=== PATIENT | female | born 1985 ===

== ENCOUNTER 2018-10-21 21:04 | Emergency (ER) | payer SELFPAY ==
[2018-10-22 01:04] LABS: HCG Qualitative,Urine Negative (Negative)
[2018-10-22 01:10] LABS: Bacteria,Urine 1+ /HPF (Negative); Bilirubin,Urine NEG (Negative); Blood,Urine NEG (Negative); Color,Urine Yellow (Yellow); Mucus,Urine FEW /HPF; Protein,Urine <15 mg/dL mg/dL (Negative); Urobilinogen,Urine < 2.0 mg/dL (<2.0)
[2018-10-22 02:24] VITALS: BP 120/57
[2018-10-22] MEDS ORDERED: DECADRON IM ONE (04:44)
[2018-10-22] MEDS ORDERED: REGLAN PO ONE (04:44)
[2018-10-22] MEDS ORDERED: BENADRYL PO ONE (04:44)
[2018-10-22] MEDS ORDERED: TYLENOL PO ONE (04:44)
--- NOTE | 2018-10-22 05:57 | XRay Report ---
FINAL REPORT EXAM: XR CHEST ROUTINE 2V HISTORY: sob TECHNIQUE: PA and lateral chest radiographs PRIORS: None. FINDINGS: No mediastinal shift. Cardiac silhouette is not enlarged. No pneumothorax, effusion, or focal pulmon ariel opacity. No acute skeletal finding. IMPRESSION: No focal pulmonary opacity.
--- NOTE | 2018-10-22 06:18 | Emergency Department Report ---
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 , request sister for translation, patient states treated for pharyngitis and sinusitis in [place] one week ago however pt states allergic reaction to amoxicillin, as symptoms persist and she gets worsening headache and dizziness with amoxicillin use , symptoms now include headache ,frontal sinus pressure and sore throat dysphagia with clear mucus and postnasal drip patient states cough causes shortness of breath however there is no fever in triage patient denies wheezing or nausea vomiting no back pain symptoms are exacerbated by position and activity temporarily relieve by rest last menstrual period was 09/17/2018 Onset/Timin -: Gradual, week(s) Location: head, face Radiation: non-radiation Severity scale (0 -10): 3 Quality: aching, sharp, other (pressure ) Improves with: none Worsens with: other (activity ) Associated Symptoms: cough, headaches, malaise Treatments Prior to Arrival: none - Related Data Previous Rx's Medication Instructions Recorded Last Taken Type Cephalexin [Keflex] 500 mg PO TID 10 Days #30 capsule 10/22/18 Unknown Rx Dexamethasone [Decadron] 4 mg PO BID 3 Days #6 tablet 10/22/18 Unknown Rx Metoclopramide [Reglan] 10 mg PO ACHS PRN #28 tablet 10/22/18 Unknown Rx diphenhydrAMINE [Benadryl CAP] 25 mg PO Q6HR PRN 7 Days #28 10/22/18 Unknown Rx capsule Allergies Allergy/AdvReac Type Severity Reaction Status Date / Time Penicillins Allergy Unknown Verified 10/21/18 22:16 ED Review of Systems ROS: Stated complaint: SAMREEN Other details as noted in HPI Constitutional: chills, fever ENT: throat pain, congestion Respiratory: cough, shortness of breath. denies: wheezing Cardiovascular: denies: chest pain, palpitations Endocrine: no symptoms reported Gastrointestinal: denies: abdominal pain, nausea, diarrhea Genitourinary: frequency. denies: urgency, dysuria, discharge Musculoskeletal: denies: back pain, joint swelling, arthralgia Skin: denies: rash, lesions Neurological: headache. denies: weakness, paresthesias Psychiatric: anxiety. denies: depression Hematological/Lymphatic: denies: easy bleeding, easy bruising ED Past Medical Hx - Past Medical History Hx Hypertension: Yes - Surgical History Additional Surgical History: 2 C-SECTIONS - Social History Smoking Status: Never Smoker Substance Use Type: Alcohol - Medications Home Medications: Home Medications Medication Instructions Recorded Confirmed Last Taken Type Cephalexin [Keflex] 500 mg PO TID 10 Days #30 capsule 10/22/18 Unknown Rx Dexamethasone [Decadron] 4 mg PO BID 3 Days #6 tablet 10/22/18 Unknown Rx Metoclopramide [Reglan] 10 mg PO ACHS PRN #28 tablet 10/22/18 Unknown Rx diphenhydrAMINE [Benadryl CAP] 25 mg PO Q6HR PRN 7 Days #28 10/22/18 Unknown Rx capsule ED Physical Exam - General Limitations: No Limitations General appearance: alert, in no apparent distress - Head Head exam: Present: atraumatic, normocephalic, normal inspection - Eye Eye exam: Present: normal appearance, PERRL, EOMI Pupils: Present: normal accommodation - ENT ENT exam: Present: mucous membranes moist, normal external ear exam - Expanded ENT Exam Expanded Ear exam: Present: normal external inspection Mouth exam: Absent: trismus Throat exam: Positive: tonsillar erythema, tonsillomegaly, tonsillar exudate, other (uvula midline mild exudate no lesions no stridor no wheezing ). Negative: R peritonsillar mass, L peritonsillar mass - Neck Neck exam: Present: normal inspection, full ROM. Absent: tenderness, lymphadenopathy, thyromegaly - Respiratory Respiratory exam: Present: normal lung sounds bilaterally. Absent: respiratory distress, wheezes, rales, rhonchi, stridor, chest wall tenderness, accessory muscle use, decreased breath sounds, prolonged expiratory - Cardiovascular Cardiovascular Exam: Present: regular rate, normal rhythm, normal heart sounds. Absent: systolic murmur, diastolic murmur, rubs, gallop - GI/Abdominal GI/Abdominal exam: Present: soft, normal bowel sounds. Absent: bruit, hernia - Rectal Rectal exam: Present: deferred - Extremities Exam Extremities exam: Present: normal inspection, full ROM, normal capillary refill - Back Exam Back exam: Present: normal inspection, full ROM. Absent: tenderness, CVA tenderness (R), muscle spasm, paraspinal tenderness, vertebral tenderness, rash noted - Neurological Exam Neurological exam: Present: alert, oriented X3, CN II-XII intact, normal gait, reflexes normal - Psychiatric Psychiatric exam: Present: normal affect, normal mood - Skin Skin exam: Present: warm, dry, intact, normal color. Absent: rash ED Course Vital Signs 10/21/18 10/21/18 10/22/18 21:15 22:08 02:21 Temperature 97.8 F 97.8 F 97.3 F L Pulse Rate 85 81 60 Respiratory 18 18 14 Rate Blood Pressure 117/77 117/77 120/57 O2 Sat by Pulse 98 98 99 Oximetry ED Medical Decision Making - EKG Data EKG shows normal: sinus rhythm - EKG Data When compared to previous EKG there are: previous EKG unavailable (no previous ekg ) Interpretation: normal EKG (nsr no ectopy no st elevation inter by ed attending ) - Radiology Data Radiology results: report reviewed, image reviewed FINAL REPORT EXAM: XR CHEST ROUTINE 2V HISTORY: sob TECHNIQUE: PA and lateral chest radiographs PRIORS: None. FINDINGS: No mediastinal shift. Cardiac silhouette is not enlarged. No pneumothorax, effusion, or focal pulmonary opacity. No acute skeletal finding. IMPRESSION: No focal pulmonary opacity. Transcribed By: MB Dictated By: CHERI GALEANA MD Electronically Authenticated By: CHERI GALEANA MD Signed Date/Time: 10/22/18556 DD/ 4 TD/TT: 10/22/18554 - Medical Decision Making headache is resolve, ekg: nsr , cxr: no opacities no infiltrates rapid strep is neg, hcg neg, ua: small luek, few wbc, pt states allergies to amoxicillin plan: keflex to cover uti and pharyngitis, tylenol reglan, benadryl for headache pt will follow up with [facility] in 2 -3 days , return to ed if symptoms worsen there is no resp distress no wheezing in stridor no accessory muscle use, pt denies dizziness no light headedness no n/v at this time, pt is tolerating po intake with symptoms at thist time. will dc to home with headache regimen decadron, tylenol, benadryl, reglan, keflex for pharyngitis, pt and family member verbalize agreement and understanding with discharge plan. Critical care attestation.: If time is entered above; I have spent that time in minutes in the direct care of this critically ill patient, excluding procedure time. ED Disposition Clinical Impression: Pharyngitis Qualifiers: Pharyngitis/tonsillitis etiology: unspecified etiology Qualified Code(s): J02.9 - Acute pharyngitis, unspecified UTI (urinary tract infection) Qualifiers: Urinary tract infection type: acute cystitis Hematuria presence: without hematuria Qualified Code(s): N30.00 - Acute cystitis without hematuria Headache Qualifiers: Headache chronicity pattern: acute headache Intractability: not intractable Disposition: - TO HOME OR SELFCARE Is pt being admited?: No Does the pt Need Aspirin: No Condition: Stable Instructions: Acute Headache (ED), Pharyngitis (ED), Urinary Tract Infection in Women (ED) Prescriptions: Cephalexin [Keflex] 500 mg PO TID 10 Days #30 capsule Dexamethasone [Decadron] 4 mg PO BID 3 Days #6 tablet diphenhydrAMINE [Benadryl CAP] 25 mg PO Q6HR PRN 7 Days #28 capsule PRN Reason: Headache Metoclopramide [Reglan] 10 mg PO ACHS PRN #28 tablet PRN Reason: Headache Referrals: [facility] [Outside] - 3-5 Days Forms: Work/School Release Form(ED) Time of Disposition: 06:21
== END 2018-10-22 06:41 | disposition home or self-care (01) ==
LOC: ED 21:04
DX: J02.9 Acute pharyngitis, unspecified (principal); N39.0 Urinary tract infection, site not specified; I10 Essential (primary) hypertension; Z88.0 Allergy status to penicillin
CPT/HCPCS: 71046; 81001; 81025; 87116; 87430; 93005; 93010; 96372; 99284; J1100